=== PATIENT | female | born 1935 | race Caucasian/White ===

== ENCOUNTER → 2025-07-23 07:30 | Outpatient (REF) | payer MEDICARE, SELFPAY | LOC: DHSLP 07:30 | PROVIDERS: ATTENDING PHYSICIAN Internal Medicine Cardiovascular Disease; FAMILY PHYSICIAN Internal Medicine | DX: G47.33 Obstructive sleep apnea (adult) (pediatric) (principal) | CPT/HCPCS: 95800 ==